=== PATIENT | male | born 1940 | race Caucasian/White ===

== ENCOUNTER → 2021-06-17 08:30 | Outpatient (CLI) | payer MEDICARE, SELFPAY ==
--- NOTE | ~2021-06-17 | XR_ITS ---
EXAMINATION: XR thoracic spine 3V DATE: 06/17/2021 08:51 INDICATION: Thoracic back pain TECHNIQUE: AP, lateral and lateral swimmer's views of the thoracic spine were obtained. COMPARISON: None. FINDINGS: There is no fracture, dislocation, or subluxation. The vertebral body heights and alignment are normal. There is moderate loss of intervertebral disc space height at multiple levels in the tho racic spine surgical clips are noted in the left neck. IMPRESSION: 1. Moderate thoracic spondylosis without acute findings. Reviewed, dictated and finalized at location B. [employer]
== END ==
PROVIDERS: PCP Internal Medicine; Visit Provider Nurse Practitioner Adult Health
DX: M47.894 Other spondylosis, thoracic region (principal)
CPT/HCPCS: 72072

== ENCOUNTER → 2021-06-30 09:12 | Outpatient (CLI) | payer MEDICARE, SELFPAY ==
--- NOTE | ~2021-06-30 | MR_ITS ---
EXAMINATION: MR thoracic spine wo con EXAM DATE: 06/30/2021 09:50 INDICATION: Pain in thoracic spine, upper back, left shoulder. TECHNIQUE: Multi-sequential, multiplanar MR images of the thoracic spine were obtained without contra st. Sagittal T1, T2, T2 fat saturation, axial T2 weighted images reviewed. Correlation is made to th oracic x-ray 06/17/2021. FINDINGS: There is a large amount of posterior epidural fat. There is edema in the left T4-5 neural f oramina, edema within the epidural fat and small amount in the left posterior aspect of the vertebral body without any corresponding abnormality identified on the axial images. There is mild diffuse tho racic facet arthropathy and disc disease. No central canal or neural foraminal stenosis. No evidence of epidural abscess. No focal bone marrow lesion. Paraspinal soft tissue is unremarkable. IMPRESSION: 1. Mild nonspecific edema within the left T4/5 neural foramina probably reactive but from uncertain underlying etiology. Does left T4 dermatome correlate to patient's symptoms? 2. Mild thoracic spondylosis. Reviewed, dictated and finalized at location A. [employer] IMPRESSION: 1. Mild nonspecific edema within the left T4/5 neural foramina probably reacti ve but from uncertain underlying etiology. Does left T4 dermatome correlate to patient's symptoms? 2. Mild thoracic spondylosis.
== END ==
PROVIDERS: PCP Internal Medicine; Visit Provider Nurse Practitioner Adult Health
DX: M47.894 Other spondylosis, thoracic region (principal); R60.0 Localized edema
CPT/HCPCS: 72146